=== PATIENT | male | born 1970 | race American Indian/Alaskan Native ===

== ENCOUNTER 2020-05-29 20:48 | Emergency (ER) | payer BC ==
[2020-05-29 22:34] LABS: Hematocrit 43.2 % (35.5-45.6); Hemoglobin 14.9 gm/dl (11.8-15.2); Mean Corpuscular HGB Conc 35 % (32-34); Mean Corpuscular Volume 93 fl (84-94); Platelet Count 205 K/mm3 (140-440); Red Blood Count 4.64 M/mm3 (3.65-5.03); Red Cell Distribution Width 13.8 % (13.2-15.2)
[2020-05-29 23:01] LABS: Alanine Aminotransferase 31 units/L (7-56); Albumin 4.4 g/dL (3.9-5); BUN/Creatinine Ratio 10; Blood Urea Nitrogen 11 mg/dL (9-20); Calcium 8.8 mg/dL (8.4-10.2); Hemolysis Index 7
--- NOTE | 2020-05-30 00:33 | Emergency Department Report ---
ED General Adult HPI - General Chief complaint: Neuro Symptoms/Deficit Stated complaint: RT SIDE NUMBNESS Source: patient Mode of arrival: Ambulatory Limitations: No Limitations - History of Present Illness Initial comments: Patient is a 50-year-old -[place] male with a history of hypertension and who is noncompliant with his hypertension treatment presents to the ED with complaint of acute onset persistently elevated blood pressure with tingling sensation on right arm and right leg for the last 4 hours. Patient states that he was asleep at home when he woke up with tingling sensation on the right arm and right leg and when he checked his blood pressure it was significantly elevated. Patient states that he may have laid on his right side but was unsure. Patient states that he has been taking supplements "to control my blood pressure". Patient also states "I just do not want to take any blood pressure medications for life". Patient denies chest pain, shortness of breath, headache, dizziness, syncope, nausea, vomiting, abdominal pain, palpitations, change in vision, lightheadedness, bilateral upper and lower extremity weakness, change in speech or hearing loss and facial numbness and weakness. MD Complaint: Elevated blood pressure; tingling sensation on right arm and right leg -: Sudden, hour(s) (4) Location: upper extremity (right arm tingling), lower extremity (right leg tingling sensation) Radiation: non-radiation Severity scale (0 -10): 0 Quality: dull Consistency: constant Improves with: none Worsens with: none Associated Symptoms: denies other symptoms. denies: confusion, chest pain, c ough, diaphoresis, fever/chills, headaches, loss of appetite, malaise, nausea/vomiting, rash, seizure, shortness of breath, syncope, weakness, other Treatments Prior to Arrival: none - Related Data Previous Rx's Medication Instructions Recorded Last Taken Type Naproxen 500 mg PO Q12H PRN #24 tablet 05/30/20 Unknown Rx amLODIPine 10 mg PO DAILY #30 tab 05/30/20 Unknown Rx Allergies Allergy/AdvReac Type Severity Reaction Status Date / Time No Known Allergies Allergy Unverified 05/29/20 21:33 ED Review of Systems ROS: Stated complaint: RT SIDE NUMBNESS Other details as noted in HPI Constitutional: other (Elevated blood pressure). denies: chills, fever Eyes: denies: eye pain, eye discharge, vision change ENT: denies: ear pain, throat pain Respiratory: denies: cough, shortness of breath, wheezing Cardiovascular: denies: chest pain, palpitations, dyspnea on exertion, syncope, paroxysmal nocturnal dyspnea Endocrine: no symptoms reported Gastrointestinal: denies: abdominal pain, nausea, vomiting, diarrhea Genitourinary: denies: urgency, dysuria Musculoskeletal: arthralgia (tingling sensations on right arm and leg). denies: back pain, joint swelling Skin: denies: rash, lesions Neurological: paresthesias (tingling of right arm and leg). denies: headache, weakness Psychiatric: denies: anxiety, depression Hematological/Lymphatic: denies: easy bleeding, easy bruising ED Past Medical Hx - Past Medical History Previous Medical History?: Yes Hx Hypertension: Yes - Surgical History Past Surgical History?: No Additional Surgical History: Deviated septum - Social History Smoking Status: Never Smoker Substance Use Type: None - Medications Home Medications: Home Medications Medication Instructions Recorded Confirmed Last Taken Type Naproxen 500 mg PO Q12H PRN #24 tablet 05/30/20 Unknown Rx amLODIPine 10 mg PO DAILY #30 tab 05/30/20 Unknown Rx ED Physical Exam - General Limitations: No Limitations General appearance: alert, in no apparent distress - Head Head exam: Present: atraumatic, normocephalic, normal inspection - Eye Eye exam: Present: normal appearance, PERRL, EOMI Pupils: Present: normal accommodation - ENT ENT exam: Present: normal exam, normal orophraynx, mucous membranes moist, TM's normal bilaterally, normal external ear exam - Neck Neck exam: Present: normal inspection, full ROM - Respiratory Respiratory exam: Present: normal lung sounds bilaterally. Absent: respiratory distress, wheezes, rales, stridor, chest wall tenderness, accessory muscle use, decreased breath sounds, prolonged expiratory - Cardiovascular Cardiovascular Exam: Present: normal rhythm, tachycardia, normal heart sounds. Absent: systolic murmur, diastolic murmur, rubs, gallop - GI/Abdominal GI/Abdominal exam: Present: soft, normal bowel sounds. Absent: tenderness, guarding, rebound, hyperactive bowel sounds, hypoactive bowel sounds, or ganomegaly - Extremities Exam Extremities exam: Present: normal inspection, full ROM, normal capillary refill - Back Exam Back exam: Present: normal inspection, full ROM. Absent: tenderness, CVA tenderness (R), CVA tenderness (L), muscle spasm, paraspinal tenderness, vertebral tenderness - Neurological Exam Neurological exam: Present: alert, oriented X3, CN II-XII intact, normal gait, reflexes normal - Psychiatric Psychiatric exam: Present: normal affect, anxious - Skin Skin exam: Present: warm, dry, intact, normal color. Absent: rash ED Course Vital Signs 05/29/20 21:35 Temperature 98.4 F Pulse Rate 104 H Respiratory 20 Rate Blood Pressure 173/120 O2 Sat by Pulse 96 Oximetry ED Medical Decision Making - Lab Data Result diagrams: 05/29/20 22:13 05/29/20 22:13 - Medical Decision Making This is a 50-year-old -[place] male with a history of hypertension and who is noncompliant with his hypertension treatment presents to the ED with complaint of acute onset persistently elevated blood pressure with tingling sensation on right arm and right leg for the last 4 hours. Patient states that he was asleep at home when he woke up with tingling sensation on the right arm and right leg and when he checked his blood pressure it was significantly elevated. Patient states that he may have laid on his right side but was unsure. Patient states that he has been taking supplements to control his blood pressure with no relief because of fear of taking blood pressure medications. In the ED, patient is alert and oriented x3 and is not in any distress but anxious. Patient's blood pressure is significantly elevated to 173/120 and he is afebrile and tachycardic. Lab test results were reviewed and are all nonact ionable. Patient is ambulatory in the ED with no difficulties and exhibits no neurological symptoms. Patient's tingling sensation within the right arm and right leg are likely due to cervical and lumbar radiculopathy respectively due to the patient having laid on the right side when sleeping prior to the onset of the symptoms. Patient however has chronic hypertension which is poorly controlled. I offered patient counseling regarding the importance of taking his blood pressure medications and the danger exposes himself to when he does not take any blood pressure medication. I also advised the patient that the supplements cannot substitute blood pressure medications especially if he is not practicing any lifestyle changes. Patient agreed to take blood pressure medications and was given a prescription of amlodipine 10 mg p.o. x1 daily and was also given a referral to primary care physician to follow-up in 7 to 10 days for reevaluation. Patient is advised return to the ED immediately if symptoms get worse. - Differential Diagnosis Uncontrolled HTN; Muscle strain; cervical/Lumbar radiculopathy; anxiety Critical care attestation.: If time is entered above; I have spent that time in minutes in the direct care of this critically ill patient, excluding procedure time. ED Disposition Clinical Impression: Uncontrolled stage 2 hypertension, Anxiety as acute reaction to exceptional stress Radiculopathy Qualifiers: Spinal region: unspecified Qualified Code(s): M54.10 - Radiculopathy, site unspecified Disposition: DC- TO HOME OR SELFCARE Is pt being admited?: No Does the pt Need Aspirin: No Condition: Stable Instructions: Hypertension (ED), Hypertension, Adult, [id number], Cervical Radiculopathy, [id number], Lumbosacral Radiculopathy Additional Instructions: All lab test results were reviewed and are all nonactionable. Therefore your symptoms are likely due to nerve impingement or neuropathy and uncontrolled hypertension. Therefore take medications as advised, drink plenty of fluids and follow-up with your primary care physician in 3 to 5 days for reevaluation. Return to the ED immediately if symptoms get worse. Prescriptions: amLODIPine 10 mg PO DAILY #30 tab Naproxen 500 mg PO Q12H PRN #24 tablet PRN Reason: Pain , Severe (7-10) Referrals: KIARA VELAZQUEZ MD [Staff Physician] - 3-5 Days [facility] [Provider Group] - 3-5 Days Time of Disposition: 00:34 Print Language: TURKISH
[2020-05-30 00:48] VITALS: BP 173/115
== END 2020-05-30 02:00 | disposition home or self-care (01) ==
LOC: ED 20:48
DX: M54.10 Radiculopathy, site unspecified (principal); F41.1 Generalized anxiety disorder; F43.0 Acute stress reaction; I10 Essential (primary) hypertension; Z98.890 Other specified postprocedural states; Z79.899 Other long term (current) drug therapy
CPT/HCPCS: 36415; 80053; 84484; 85027